=== PATIENT | male | born 1980 | race African-American/Black ===

== ENCOUNTER 2024-09-09 19:07 | Emergency (ER) | payer OTHER ==
[2024-09-09 19:12] VITALS: BP 126/72; PULSE 76; RESP 18; TEMP 97.8; BMI 30.8
[2024-09-09] MEDS ORDERED: LIDOCAINE 4% PATCH TP ONE (20:05)
[2024-09-09] MEDS ORDERED: CycloBENZAprine HCL 5 MG TABLET ONE (20:06)
[2024-09-09] MEDS ORDERED: IBUPROFEN 400 MG TABLET (FP) PO ONE (20:07)
[2024-09-09] MEDS: CycloBENZAprine HCL 10 MG TABLET (FP) PO ONE (20:10)
[2024-09-09] MEDS: LIDOCAINE 5% TOPICAL PATCH TP ONE (20:11)
[2024-09-09] MEDS: IBUPROFEN 600 MG TABLET (FP) PO ONE (20:11)
[2024-09-09] MEDS ORDERED: LIDOCAINE PATCH REMOVAL MC SCH (22:00)
== END 2024-09-09 20:46 | disposition home or self-care (01) ==
LOC: JER 19:07 → JERFT 19:07
DX: S16.1XXA Strain of muscle, fascia and tendon at neck level, initial encounter (principal); M62.830 Muscle spasm of back; M54.50 Low back pain, unspecified; V79.59XA Passenger on bus injured in collision with other motor vehicles in traffic accident, initial encounter; Y92.410 Unspecified street and highway as the place of occurrence of the external cause
CPT/HCPCS: 99283-25